=== PATIENT | male | born 1975 | race Caucasian/White ===

== ENCOUNTER 2018-06-01 17:58 | Emergency (ER) | payer OTHER ==
[~2018-06-01] VITALS: Ht 180.3 cm; Wt 99.1 kg
[2018-06-01 18:03] VITALS: BP 132/83
[2018-06-01] MEDS ORDERED: HEPATITIS B IMMUNE GLOBULIN IMVAC ONE (18:40)
[2018-06-01] MEDS ORDERED: hepatitis B virus vaccine/PF 20mcg/ml vaccine***IM only IMVAC ONE (18:40)
[2018-06-01 19:54] LABS: HIV ANTIBODY 1&2 RAPID NON-REACTIVE (Neg)
[2018-06-03 14:44] LABS: HEP B CORE AB, IGM Negative (Negative); HEP B CORE AB, TOT Negative (Negative); HEPATITIS C ANTIBODY <0.1 s/co ratio (0.0-0.9)
== END 2018-06-01 19:47 | disposition home or self-care (01) ==
LOC: ER 18:05
DX: S61.231A Puncture wound without foreign body of left index finger without damage to nail, initial encounter (principal); W46.0XXA Contact with hypodermic needle, initial encounter; Y93.89 Activity, other specified; Y92.89 Other specified places as the place of occurrence of the external cause; Y99.8 Other external cause status
CPT/HCPCS: 36415; 86703; 86704; 86705; 86706; 86803; 90371; 90471; 90746; 96372; 99284

== ENCOUNTER 2019-12-06 09:16 | Emergency (ER) | payer BC, OTHER ==
[~2019-12-06] VITALS: Ht 180.3 cm; Wt 115.0 kg
[2019-12-06 09:47] LABS: BASOPHILS % (AUTO) 0.8 % (0-1); EOSINOPHILS % (AUTO) 0.4 % (0-6); HEMOGLOBIN 13.4 g/dl (14.0-17.9); LYMPHOCYTES # (AUTO) 0.7 X10'3 (1.1-4.8); LYMPHOCYTES % (AUTO) 17.7 % (21-51); MEAN CORPUSCULAR HEMOGLOBIN 25.7 PG (27.0-31.0); MEAN CORPUSCULAR HGB CONC 32.8 g/dL (33.0-36.5); MEAN CORPUSCULAR VOLUME 78.5 FL (78-98); MONOCYTES # (AUTO) 0.3 X10'3 (0-0.9); MONOCYTES % (AUTO) 6.8 % (2-12); NEUTROPHILS # (AUTO) 3.1 X10'3 (1.8-7.7); NEUTROPHILS % (AUTO) 74.3 % (42-75); PLATELET COUNT 258 X10'3 (140-440); RED BLOOD COUNT 5.22 X10'6 (4.70-6.10); RED CELL DISTRIBUTION WIDTH 14.6 % (11.5-14.5); WHITE BLOOD COUNT 4.2 X10'3 (4.5-11.0)
[2019-12-06 10:02] LABS: ALANINE AMINOTRANSFERASE 32 U/L (12-78); ALBUMIN 4.3 G/DL (3.4-5.0); ALBUMIN/GLOBULIN RATIO 1.4 (1.1-1.5); ALKALINE PHOSPHATASE 58 IU/L (46-116); ANION GAP 5 (8-16); ASPARTATE AMINO TRANSFERASE 17 U/L (10-37); BILIRUBIN,TOTAL 0.4 MG/DL (0.1-1.0); BLOOD UREA NITROGEN 11 MG/DL (7-18); BUN/CREATININE RATIO 12.5 (5.4-32.0); CALCIUM 9.9 MG/DL (8.5-10.1); CHLORIDE 106 MMOL/L (99-107); CREATININE 0.88 MG/DL (0.60-1.10); GLUCOSE 117 MG/DL (70-104); POTASSIUM 4.3 MMOL/L (3.5-5.1); SODIUM 141 MMOL/L (135-145); TOTAL CARBON DIOXIDE 29.7 MMOL/L (24-32); TOTAL PROTEIN 7.3 G/DL (6.4-8.2); eGFR > 90 ML/MIN
[2019-12-06] MEDS ORDERED: famotidine 20mg tablet PO ONE (10:35)
[2019-12-06] MEDS ORDERED: mag hydrox/Alum hydrox/simeth 30ml oral suspension PO ONE (10:35)
[2019-12-06] MEDS ORDERED: LIDOcaine Viscous 15ml cup MM ONE (10:35)
[2019-12-06 11:36] VITALS: BP 135/75
== END 2019-12-06 11:40 | disposition home or self-care (01) ==
LOC: ER 09:16
DX: K21.9 Gastro-esophageal reflux disease without esophagitis (principal); R42 Dizziness and giddiness; Z98.890 Other specified postprocedural states
CPT/HCPCS: 36415; 71045; 80053; 84484; 85025; 93005; 99285

== ENCOUNTER 2024-05-19 08:26 | Outpatient (CLI) | payer OTHER | END 2024-05-19 23:59 | disposition home or self-care (01) | LOC: MRI02 08:26 | PROVIDERS: ATTEND Podiatrist Foot & Ankle Surgery | DX: M77.31 Calcaneal spur, right foot (principal); M79.672 Pain in left foot; M72.2 Plantar fascial fibromatosis; M24.573 Contracture, unspecified ankle; M79.671 Pain in right foot | CPT/HCPCS: 73721 ==